=== PATIENT | male | born 1945 | race Caucasian/White ===

== ENCOUNTER 2016-10-25 16:32 | Emergency (ER) | payer OTHER ==
[~2016-10-25] VITALS: Ht 175.3 cm; Wt 117.9 kg
[2016-10-25 16:32] VITALS: BP 152/101
[~2016-10-25 16:32] MED LIST: UNK HTN MED
[2016-10-25] MEDS ORDERED: KETOROLAC TROMETHAMINE INJ 60 MG/2 ML VIAL IM ONE ×2 (17:30→17:53)
== END 2016-10-25 18:08 | disposition home or self-care (01) ==
LOC: ER 16:37
DX: S39.012A Strain of muscle, fascia and tendon of lower back, initial encounter (principal); I10 Essential (primary) hypertension; X58.XXXA Exposure to other specified factors, initial encounter; Y93.11 Activity, swimming; Y92.89 Other specified places as the place of occurrence of the external cause; Y99.9 Unspecified external cause status
CPT/HCPCS: A4606; J1885; Z7610

== ENCOUNTER 2018-10-22 15:38 | Emergency (ER) | payer MEDICARE ==
[~2018-10-22] VITALS: Ht 177.8 cm; Wt 127.5 kg
--- NOTE | 2018-10-22 15:45 | NUR ---
PATIENT CAME IN FOR MIDSTERTAL CHEST PAIN SINCE 329 TODAY. BREATHING EVEN AND UNLABORED, NO SOB NOTED AT THIS TIME. WILL MONITOR. AWAITING FOR MD PEREZ.
[2018-10-22 16:11] LABS: BASOPHILS # (AUTO) 0.1 /CMM (0.0-0.2); BASOPHILS % (AUTO) 0.7 % (0.0-2.0); EOSINOPHILS % (AUTO) 1.3 % (0.0-6.0); HEMATOCRIT 44 % (39-51); HEMOGLOBIN 14.6 g/dL (13.5-17.5); LYMPHOCYTES # (AUTO) 2.4 /CMM (0.8-4.8); LYMPHOCYTES % (AUTO) 28.3 % (20.0-44.0); MEAN CORPUSCULAR HGB CONC 33 g/dl (31.0-36.0); MEAN CORPUSCULAR VOLUME 90 fL (80-96); MONOCYTES # (AUTO) 0.8 /CMM (0.1-1.30); MONOCYTES % (AUTO) 9.2 % (2.0-12.0); NEUTROPHILS % (AUTO) 60.5 % (43.0-81.0); PLATELET COUNT (AUTO) 246 /CMM (150-450); RED BLOOD CELL COUNT(AUTO) 4.86 MIL/uL (4.5-6.0); WHITE BLOOD COUNT (AUTO) 8.3 K/uL (4.3-11.0)
[2018-10-22 16:20] LABS: CALCIUM, SERUM 8.7 mg/dL (8.5-10.1); CARBON DIOXIDE 26 mmol/L (21-32); CHLORIDE 102 mmol/L (98-107); CREATININE 1.1 mg/dL (0.6-1.3); GLUCOSE 129 mg/dL (74-106); POTASSIUM 3.8 mmol/L (3.5-5.1); SODIUM SERUM 137 mmol/L (136-145); UREA NITROGEN, BLOOD 17 mg/dL (7-18)
[2018-10-22] MEDS ORDERED: HYDR50TA3 PO (16:29)
[2018-10-22] MEDS ORDERED: LISI10TA5 PO (16:29)
[2018-10-22] MEDS ORDERED: VIT1CAPS9 PO (16:30)
[2018-10-22] MEDS ORDERED: DOXY25TA55 PO (16:30)
[2018-10-22] MEDS ORDERED: MELA3TAB PO (16:30)
[2018-10-22] MEDS ORDERED: METF-440 PO (16:30)
[2018-10-22] MEDS ORDERED: IBUP200C5 PO (16:30)
[2018-10-22] MEDS ORDERED: IV NS 0.9% 250 ML IV ONE (16:36)
[2018-10-22] MEDS ORDERED: IOHEXOL-350 100 ML VIAL IV ONE (16:36)
[2018-10-22] MEDS ORDERED: CT SWABBABLE VALVE TRANS SET 1 EA INFUS.SET MC ONE (16:36)
[2018-10-22] MEDS ORDERED: ASPIRIN 81 MG TAB.CHEW PO ONE (17:00)
[2018-10-22] MEDS ORDERED: ASPIRIN 81 MG TAB.CHEW ONE (17:06)
--- NOTE | 2018-10-22 17:45 | NUR ---
PAGED DR CROWLEY FOR CONSULT
--- NOTE | 2018-10-22 17:52 | NUR ---
PAGED DR CAREY FOR CONSULT OF THIS PATIENT.
--- NOTE | 2018-10-22 18:41 | NUR ---
SPOKE TO DESTINEY- CIRCULATION SALES REPRESENTATIVE REGARDING TRANSFER OF THIS PATIENT TO [facility] AT REQUEST OF DR THRASHER
[2018-10-22] MEDS: ESMOLOL IVPB PREMIX 250 ML IV PRN (18:52)
--- NOTE | 2018-10-22 18:52 | NUR ---
ESMOLOL STARTED AND VERIFIED WITH CHARGE NURSE GENER. STARTED ON 39.6ML/HR. PATIENT'S BLOOD PRESSURE IS MONITORED EVERY 5 MINUTES.
--- NOTE | 2018-10-22 19:20 | NUR ---
PER DESTINEY MANN [facility], STARTING TRANSFER OF [facility]
--- NOTE | 2018-10-22 19:38 | NUR ---
ADDENDUM: Intravenous End Time Documentation: Esmolol drip : start time: 1938 PM ; end time: 0320 AM (10/23/2018): IV site: # 18 Port #1
--- NOTE | 2018-10-22 19:38 | NUR ---
BP 160/100, esmolol increased to 100mcg/kg/min, Tash monorail charger operator nurse aware. Patient a/ox4, no distress noted at this time. Endorsed to [place].
[2018-10-22] MEDS ORDERED: ESMOLOL IVPB PREMIX 250 ML IV ONE ×2 (21:09→22:51)
--- NOTE | 2018-10-22 21:26 | NUR ---
Message left to Rodding Anode Worker Joesph for updates.
--- NOTE | 2018-10-22 21:29 | NUR ---
Spoke with Joesph Wheel Shop Supervisor, she is currently working on transport to [facility].
[2018-10-22] MEDS ORDERED: D5W IV PRN (21:30)
[2018-10-22] MEDS ORDERED: LABETALOL HCL IV PRN (21:30)
--- NOTE | 2018-10-22 22:05 | NUR ---
[facility] RN states they will release room in 10 minutes.
--- NOTE | 2018-10-22 22:07 | NUR ---
Spoke to Coating Inspector - Joesph, states Pt is on will call with ambulance company, will call back with tranport info/eta.
--- NOTE | 2018-10-22 22:51 | NUR ---
*CORRECTION* BLUEPRINT ENGINEER NAME "PATRICK"
--- NOTE | 2018-10-22 23:06 | NUR ---
TRANSFER INFO TO JEFF HINOJOSA: MELE FOR REPORT: [phone] OPTION #1, EXT [id number] [address]Z ETA [id number] TRIP #[id number] TRANSPORT AUTH [id number]
--- NOTE | 2018-10-22 23:12 | NUR ---
ACCEPTED BY DR HILL
--- NOTE | 2018-10-22 23:45 | NUR ---
Patient is resting comfortably in bed with eyes closed. Easily aroused. VSS
--- NOTE | 2018-10-23 00:05 | NUR ---
[place] [facility] [place]
[2018-10-23] MEDS ORDERED: ESMOLOL IVPB PREMIX 250 ML IV ONE ×3 (00:09→00:55)
--- NOTE | 2018-10-23 00:51 | NUR ---
DEEJAY CALLED FOR UPDATE ON ARRIVAL TIME. 2-3AM.
--- NOTE | 2018-10-23 01:00 | NUR ---
RECEIVED CALL FROM [facility], CCT UNIT IS DELAYED, NEW ETA [phone]
[2018-10-23 03:19] VITALS: BP 120/77
[2018-10-23] MEDS: ESMOLOL IVPB PREMIX 250 ML IV PRN (03:19)
== END 2018-10-23 03:24 | disposition other institution (70) ==
LOC: ER 15:42
DX: I21.4 Non-ST elevation (NSTEMI) myocardial infarction (principal); I25.10 Atherosclerotic heart disease of native coronary artery without angina pectoris; I71.00 Dissection of unspecified site of aorta; I10 Essential (primary) hypertension; E11.9 Type 2 diabetes mellitus without complications; E66.9 Obesity, unspecified; Z86.73 Personal history of transient ischemic attack (TIA), and cerebral infarction without residual deficits; Z98.890 Other specified postprocedural states; Z79.82 Long term (current) use of aspirin
CPT/HCPCS: 36415; 71045; 71275; 80048; 84484; 85025; 87081; 93005; 96365; 96366; 99291; A4606; J3490; J7050; Q9967